=== PATIENT | male | born 1985 | race Caucasian/White ===

== ENCOUNTER 2016-10-29 17:14 | Emergency (ER) | payer OTHER ==
[~2016-10-29] VITALS: Ht 180.3 cm; Wt 108.4 kg
[2016-10-29 19:22] VITALS: BP 120/84
== END 2016-10-29 19:22 | disposition home or self-care (01) ==
LOC: ED 17:14
DX: L03.116 Cellulitis of left lower limb (principal); J02.9 Acute pharyngitis, unspecified; F17.200 Nicotine dependence, unspecified, uncomplicated; Z71.6 Tobacco abuse counseling
CPT/HCPCS: 99406; J0696

== ENCOUNTER 2016-11-08 10:30 | Emergency (ER) | payer OTHER ==
[~2016-11-08] VITALS: Ht 180.3 cm; Wt 106.7 kg
[2016-11-08 11:28] LABS: BASOPHIL % 0.3 % (0-2); PLATELET COUNT 391 x10^3mcL (130-400); RED CELL DISTRIBUTION WIDTH 14.2 % (11.5-14.5)
[2016-11-08 11:44] LABS: CARBON DIOXIDE 30.7 mmol/L (21-32); CHLORIDE SERUM 104 mmol/L (98-107); CREATININE SERUM 0.9 mg/dL (0.7-1.3); GFR1 > 60 mL/min; GLUCOSE SERUM 83 mg/dL (74-106); POTASSIUM SERUM 4.1 mmol/L (3.5-5.1); SODIUM SERUM 143 mmol/L (136-145)
[2016-11-08 11:48] LABS: ALBUMIN 3.7 g/dL (3.4-5.0); ALKALINE PHOSPHATASE 105 U/L (46-116); ALT/SGPT 21 U/L (16-63); AMYLASE 35 U/L (25-115); AST/SGOT 10 U/L (15-37); BILIRUBIN TOTAL 0.15 mg/dL (0.20-1.00); LIPASE 134 IU/L (73-393); TOTAL PROTEIN, SERUM 7.5 g/dL (6.4-8.2)
[2016-11-08 11:51] LABS: microscopic required? NO
[2016-11-08 12:02] LABS: UA SPECIFIC GRAVITY >=1.030 (1.005-1.035); urine erythrocyte NEGATIVE (NEGATIVE)
[2016-11-08 12:14] LABS: AMPHETAMINE QUAL UR POSITIVE (NEG <=1000)
[2016-11-08 13:34] VITALS: BP 126/78
== END 2016-11-08 13:34 | disposition home or self-care (01) ==
LOC: ED 10:30
PROVIDERS: Emergency Medicine
DX: R10.31 Right lower quadrant pain (principal); K56.7 Ileus, unspecified; F15.90 Other stimulant use, unspecified, uncomplicated; F17.210 Nicotine dependence, cigarettes, uncomplicated; F12.929 Cannabis use, unspecified with intoxication, unspecified
CPT/HCPCS: J2270; J2405; J7030; Q9967

== ENCOUNTER 2017-03-28 14:39 | Emergency (ER) | payer OTHER ==
[~2017-03-28] VITALS: Ht 180.3 cm; Wt 107.5 kg
[2017-03-28 17:20] LABS: BASOPHIL % 0.3 % (0-2); PLATELET COUNT 270 x10^3mcL (130-400); RED CELL DISTRIBUTION WIDTH 13.6 % (11.5-14.5)
[2017-03-28 17:21] VITALS: BP 129/83
[2017-03-28 17:23] LABS: CALCIUM 8.6 mg/dL (8.5-10.1); CARBON DIOXIDE 27.9 mmol/L (21-32); CHLORIDE SERUM 99 mmol/L (98-107); CREATININE SERUM 0.8 mg/dL (0.7-1.3); GFR1 > 60 mL/min; GLUCOSE SERUM 92 mg/dL (74-106); POTASSIUM SERUM 3.8 mmol/L (3.5-5.1); SODIUM SERUM 134 mmol/L (136-145)
== END 2017-03-28 17:45 | disposition short-term general hospital (02) ==
LOC: ED 14:39
PROVIDERS: Emergency Medicine
DX: J36 Peritonsillar abscess (principal); H92.02 Otalgia, left ear
CPT/HCPCS: J1100; J3010; J3490; J7030

== ENCOUNTER 2017-03-30 08:35 | Inpatient (IN) | payer OTHER ==
[~2017-03-30] VITALS: Ht 180.3 cm; Wt 108.0 kg
[2017-03-30 11:02] LABS: BASOPHIL % 0.2 % (0-2); PLATELET COUNT 286 x10^3mcL (130-400); RED CELL DISTRIBUTION WIDTH 13.6 % (11.5-14.5)
[2017-03-30 11:09] LABS: CALCIUM 9.2 mg/dL (8.5-10.1); CARBON DIOXIDE 30.3 mmol/L (21-32); CHLORIDE SERUM 97 mmol/L (98-107); CREATININE SERUM 0.9 mg/dL (0.7-1.3); GFR1 > 60 mL/min; GLUCOSE SERUM 101 mg/dL (74-106); POTASSIUM SERUM 4.1 mmol/L (3.5-5.1); SODIUM SERUM 133 mmol/L (136-145)
[2017-03-30 11:20] LABS: ALBUMIN 3.6 g/dL (3.4-5.0); ALKALINE PHOSPHATASE 100 U/L (46-116); ALT/SGPT 49 U/L (16-63); AST/SGOT 29 U/L (15-37); BILIRUBIN TOTAL 0.19 mg/dL (0.20-1.00); C REACTIVE PROTEIN 8.9 mg/dL (<=0.9); TOTAL PROTEIN, SERUM 8.5 g/dL (6.4-8.2)
[2017-03-30 11:40] LABS: UA SPECIFIC GRAVITY 1.015 (1.005-1.035); microscopic required? YES; urine erythrocyte TRACE (NEGATIVE)
[2017-03-30 11:43] LABS: CK-MB < 0.5 ng/mL (0-3.6); CREATINE KINASE 33 U/L (39-308)
[2017-03-30] MEDS ORDERED: CLINDAMYCIN HY150 M1 PO (12:03)
[2017-03-30 12:09] LABS: ERYTHROCYTE SED RATE 33 mm/hr (0-15)
[2017-03-30 15:00] LABS: T3 TOTAL 1.36 ng/mL
[2017-03-30 15:02] LABS: MAGNESIUM 1.7 mg/dL (1.8-2.4); PHOSPHOROUS 4.2 mg/dL (2.5-4.9)
[2017-03-30 15:03] LABS: CHOLESTEROL/HDL RATIO 2.8
[2017-03-30 15:08] VITALS: BP 123/78
[2017-03-30 15:26] LABS: FREE T4 1.15 ng/dL (0.76-1.46); FREE THYROXINE INDEX 3.3 ug/dL (1.4-4.5); T4(THYROXINE) 9.9 ug/dL (4.7-13.3)
[2017-03-30 16:00] LABS: AMPHETAMINE QUAL UR POSITIVE (NEG <=1000)
[2017-03-30 17:28] VITALS: BP 141/81
[2017-03-30 20:22] VITALS: BP 131/82
[2017-03-31 05:09] VITALS: BP 100/63
[2017-03-31 06:54] LABS: PLATELET COUNT 281 x10^3mcL (130-400); RED CELL DISTRIBUTION WIDTH 13.7 % (11.5-14.5)
[2017-03-31 07:02] LABS: BASOPHIL % 0 % (0-2)
[2017-03-31 07:17] LABS: CARBON DIOXIDE 30.8 mmol/L (21-32); CHLORIDE SERUM 106 mmol/L (98-107); CREATININE SERUM 0.7 mg/dL (0.7-1.3); GFR1 > 60 mL/min; GLUCOSE SERUM 121 mg/dL (74-106); MAGNESIUM 2.3 mg/dL (1.8-2.4); PHOSPHOROUS 3.4 mg/dL (2.5-4.9); POTASSIUM SERUM 4.2 mmol/L (3.5-5.1); SODIUM SERUM 141 mmol/L (136-145)
[2017-03-31 08:52] VITALS: BP 124/76
[2017-03-31 17:03] VITALS: BP 115/83
[2017-03-31 21:13] VITALS: BP 123/85
[2017-04-01 05:13] VITALS: BP 115/82
[2017-04-01 06:10] LABS: BASOPHIL % 0.4 % (0-2); PLATELET COUNT 310 x10^3mcL (130-400); RED CELL DISTRIBUTION WIDTH 13.9 % (11.5-14.5)
[2017-04-01 06:44] LABS: CALCIUM 8.3 mg/dL (8.5-10.1); CARBON DIOXIDE 28.7 mmol/L (21-32); CHLORIDE SERUM 103 mmol/L (98-107); CREATININE SERUM 0.8 mg/dL (0.7-1.3); GFR1 > 60 mL/min; GLUCOSE SERUM 86 mg/dL (74-106); MAGNESIUM 1.9 mg/dL (1.8-2.4); PHOSPHOROUS 3.8 mg/dL (2.5-4.9); POTASSIUM SERUM 4.3 mmol/L (3.5-5.1); SODIUM SERUM 138 mmol/L (136-145)
[2017-04-01 09:58] VITALS: BP 129/89
[2017-04-01] MEDS ORDERED: AUG500 PO (10:15)
[2017-04-01] MEDS ORDERED: LAC PO (10:16)
[2017-04-01] MEDS ORDERED: MEDDP PO (10:16)
[2017-04-01] MEDS ORDERED: FLONS (10:17)
[2017-04-01] MEDS ORDERED: CLINDAMYCIN HY150 M1 PO (10:35)
== END 2017-04-01 11:18 | disposition left against medical advice (07) | DRG 720 ==
LOC: ED 08:35 → DU 13:30 → MU 13:30 → DU 14:57 → MU 03-31 09:38
PROVIDERS: Specialist; ADMIT Family Medicine
DX: A41.9 Sepsis, unspecified organism (principal); E87.8 Other disorders of electrolyte and fluid balance, not elsewhere classified; E87.1 Hypo-osmolality and hyponatremia; J03.90 Acute tonsillitis, unspecified; E83.42 Hypomagnesemia; F15.10 Other stimulant abuse, uncomplicated; F12.10 Cannabis abuse, uncomplicated; R31.9 Hematuria, unspecified; Z68.33 Body mass index [BMI] 33.0-33.9, adult; F17.210 Nicotine dependence, cigarettes, uncomplicated; J98.11 Atelectasis
CPT/HCPCS: 83880; 84439; 90658; 94150; J0561; J1100; J1885; J2405; J2543; J3010; J3475; J3490; J7030; Q0092; Q9967

== ENCOUNTER 2017-08-23 20:56 | Emergency (ER) | payer OTHER ==
[~2017-08-23] VITALS: Ht 180.3 cm; Wt 111.1 kg
[~2017-08-23 20:56] MED LIST: AUG500 PO; CLINDAMYCIN HY150 M1 PO; FLONS; LAC PO; MEDDP PO
[2017-08-23 21:04] VITALS: Ht 180.3 cm; Wt 111.1 kg
[2017-08-23 23:26] VITALS: BP 126/84
== END 2017-08-23 23:26 | disposition home or self-care (01) ==
LOC: ED 20:56
DX: T15.01XA Foreign body in cornea, right eye, initial encounter (principal); Y93.89 Activity, other specified; W22.8XXA Striking against or struck by other objects, initial encounter; Y92.89 Other specified places as the place of occurrence of the external cause; Y99.8 Other external cause status

== ENCOUNTER 2019-08-07 10:48 | Emergency (ER) | payer OTHER ==
[~2019-08-07] VITALS: Ht 180.3 cm; Wt 123.8 kg
[2019-08-07 10:57] VITALS: Ht 180.3 cm; Wt 123.8 kg
[2019-08-07 13:48] VITALS: BP 155/99
== END 2019-08-07 13:48 | disposition home or self-care (01) ==
LOC: ED 10:48
DX: L03.116 Cellulitis of left lower limb (principal)
CPT/HCPCS: Q0092

== ENCOUNTER 2020-01-12 09:24 | Emergency (ER) | payer OTHER ==
[~2020-01-12] VITALS: Ht 180.3 cm; Wt 113.4 kg
[2020-01-12 09:34] VITALS: Ht 180.3 cm; Wt 113.4 kg
[2020-01-12 11:09] VITALS: BP 145/91
== END 2020-01-12 11:10 | disposition other institution (70) ==
LOC: ED 09:24
DX: Z02.89 Encounter for other administrative examinations (principal)